=== PATIENT | female | born 2000 | race Caucasian/White ===

== ENCOUNTER → 2021-01-16 23:25 | Observation (INO) ==
[2021-01-16 22:06] LABS: Bilirubin,Urine Negative (Negative); Blood,Urine Negative (Negative); Clarity,Urine Clear (Clear); Color,Urine Light-Yellow (Yellow); Glucose,Urine (UA) Normal (Normal); Ketones,Urine Negative (Negative); Leukocyte Esterase,Urine Negative (Negative); Nitrite,Urine Negative (Negative); Protein,Urine Negative (Neg-Trace); Specific Gravity,Urine 1.021 (1.010-1.025); Urobilinogen,Urine Normal (Normal)
[2021-01-16 22:38] LABS: Candida DNA Not Detected (Not Detect); Gardnerella DNA DETECTED (Not Detect); Trichomonas DNA Not Detected (Not Detect)
== END | disposition home or self-care (01) ==
LOC: 1NENULAB
PROVIDERS: ADMIT Student in an Organized Health Care Education/Training Program; ATTEND Student in an Organized Health Care Education/Training Program

== ENCOUNTER 2021-01-25 14:33 | Observation (INO) ==
[2021-01-25] MEDS ORDERED: Ondansetron 4 MG/2 ML VIAL IVP PRN (14:41)
[2021-01-25] MEDS: Ringers Solution, Lactated 1,000 ML IVC SCH ×2 (15:20→16:43)
== END 2021-01-25 19:05 | disposition home or self-care (01) ==
LOC: 1NENULAB
PROVIDERS: ADMIT Advanced Practice Midwife; ATTEND Advanced Practice Midwife

== ENCOUNTER 2021-04-14 19:37 | Inpatient (IN) ==
[2021-04-14] MEDS ORDERED: EPHEDrine 50 MG/ML VIAL IVP PRN (20:06)
[2021-04-14] MEDS ORDERED: Epidural Premix (fent/bupiv) 110 ML EP SCH (20:15)
[2021-04-14] MEDS ORDERED: *HR* Nalbuphine 10 MG/ML AMPUL IV PRN (20:21)
[2021-04-14] MEDS ORDERED: Metoclopramide 10 MG/2 ML VIAL IVP PRN (20:21)
[2021-04-14] MEDS ORDERED: *HR* FentaNYL (PF) 100 MCG/2 ML VIAL IVP PRN (20:21)
[2021-04-14] MEDS ORDERED: Naloxone 0.4 MG/ML INJ IVP PRN (20:21)
[2021-04-14] MEDS ORDERED: Famotidine 20 MG/2 ML VIAL IVP PRN (20:21)
[2021-04-14] MEDS ORDERED: Lidocaine 1% 20 ML MDV INFILT PRN (20:21)
[2021-04-14] MEDS ORDERED: Ondansetron 4 MG/2 ML VIAL IVP PRN (20:21)
[2021-04-14] MEDS ORDERED: Azithromycin 500 MG in 0.9 % Sodium Chloride 250 ML IVPB PRN (20:21)
[2021-04-14] MEDS ORDERED: Ringers Solution, Lactated 1,000 ML IVC SCH (20:30)
[2021-04-14 21:25] LABS: Amphetamine Screen,Urine Negative ng/mL (Cutoff=1000); Barbiturate Screen,Urine Negative ng/mL (Cutoff=200); Benzodiazepines Screen,Urine Negative ng/mL (Cutoff=200); Cannabinoid Screen,Urine Negative ng/mL (Cutoff = 50); Cocaine Screen,Urine Negative ng/mL (Cutoff= 300); Opiate Screen,Urine Negative ng/mL (Cutoff=300); Phencyclidine Screen,Urine Negative ng/mL (Cutoff=25)
[2021-04-14 22:32] LABS: Basophils % 0.3 %; Eosinophils # 0.1 K/mcL (0.0-0.6); Eosinophils % 0.9 %; Hematocrit 33.6 % (35.3-44.9); Immature Granulocytes % 0.5 % (0-4); Lymphocytes # 1.9 K/mcL (0.6-4.6); Lymphocytes % 16.9 %; Mean Corpuscular HGB Conc 32.7 g/dL (31.6-35.5); Mean Corpuscular Hemoglobin 28.2 pg (28.0-33.3); Mean Corpuscular Volume 86.2 fL (83.0-100.0); Mean Platelet Volume 11.7 fL (9.4-12.4); Monocytes # 0.8 K/mcL (0.0-1.3); Monocytes % 6.9 %; Neutrophils # 8.4 K/mcL (1.6-8.9); Platelet Count 172 K/mcL (140-400); Red Cell Distribution Width 13.5 % (11.5-14.5); Segmented Neutrophils % 74.5 %; White Blood Count 11.3 K/mcL (4.3-11.1)
[2021-04-14 22:38] LABS: Prothrombin Time 11.6 Seconds (9.4-12.1)
[2021-04-14 22:40] LABS: Activated Partial Thrombo Time 25.7 Seconds (26.0-36.0)
[2021-04-14] MEDS ORDERED: Oxytocin 20 units/ LR 1000 mL 20 UNIT/1,000 ML BAG IVC ONE (23:03)
[2021-04-15] MEDS ORDERED: miSOPROStoL 25 MCG TABLET PO SCH
[2021-04-15] MEDS ORDERED: Ondansetron 4 MG/2 ML VIAL ONE (05:21)
[2021-04-15] MEDS ORDERED: EPHEDrine 50 MG/ML VIAL ONE ×2 (05:21→09:02)
[2021-04-15] MEDS ORDERED: Ropivacaine/PF 0.2% 20 ML VIAL ONE ×2 (08:54→14:31)
[2021-04-15] MEDS ORDERED: *HR* FentaNYL (PF) 100 MCG/2 ML VIAL ONE ×3 (08:55→12:25)
[2021-04-15] MEDS ORDERED: *HR* FentaNYL (PF) 250 MCG/5 ML VIAL ONE ×2 (13:41→18:06)
[2021-04-15] MEDS ORDERED: Measles/Mumps/Rubella Vacc 0.5 ML VIAL SQ PRN (18:35)
[2021-04-15] MEDS ORDERED: Oxytocin 20 units/ LR 1000 mL 20 UNIT/1,000 ML BAG IVC SCH (18:35)
[2021-04-15] MEDS ORDERED: Benzocaine/Menthol 56 GM AEROSOL SPRAY TP PRN (18:35)
[2021-04-15] MEDS ORDERED: Lanolin 7 G OINT...G. TP PRN (18:35)
[2021-04-15] MEDS ORDERED: Ibuprofen 600 MG TABLET PO SCH (18:35)
[2021-04-15] MEDS ORDERED: Rho Immune Globulin 1,500 UNIT SYRINGE IM PRN (18:35)
[2021-04-15] MEDS ORDERED: Sennosides 8.6 MG TABLET PO PRN (18:35)
[2021-04-15] MEDS: Acetaminophen 325 MG TABLET PO SCH (19:18)
[2021-04-16] MEDS: Acetaminophen 325 MG TABLET PO SCH ×3 (00:51→14:40)
[2021-04-16] MEDS ORDERED: Prenatal Vit/FA 1 EACH TABLET PO SCH (09:00)
[2021-04-16 10:20] LABS: Basophils % 0.2 %; Eosinophils % 0.4 %; Hematocrit 28.6 % (35.3-44.9); Immature Granulocytes % 0.5 % (0-4); Lymphocytes # 1.5 K/mcL (0.6-4.6); Lymphocytes % 14.5 %; Mean Corpuscular HGB Conc 32.9 g/dL (31.6-35.5); Mean Corpuscular Hemoglobin 28.7 pg (28.0-33.3); Mean Corpuscular Volume 87.2 fL (83.0-100.0); Mean Platelet Volume 11.1 fL (9.4-12.4); Monocytes # 0.7 K/mcL (0.0-1.3); Monocytes % 6.6 %; Neutrophils # 7.9 K/mcL (1.6-8.9); Platelet Count 157 K/mcL (140-400); Red Blood Count 3.28 M/mcL (3.82-4.97); Red Cell Distribution Width 13.7 % (11.5-14.5); Segmented Neutrophils % 77.8 %; White Blood Count 10.1 K/mcL (4.3-11.1)
[2021-04-16 10:21] LABS: Hemoglobin 9.4 g/dL (11.5-15.4)
[2021-04-16 15:31] VITALS: BP 124/79
== END 2021-04-16 18:25 | disposition home or self-care (01) | DRG 560 ==
LOC: 1NENULAB 19:37 → 1NENUOBS 04-15 19:44
PROVIDERS: ADMIT Student in an Organized Health Care Education/Training Program; ATTEND Student in an Organized Health Care Education/Training Program